=== PATIENT | female | born 1940 | race African-American/Black ===

== ENCOUNTER 2022-11-20 08:17 | Inpatient (IN) | payer MEDICAID, MEDICARE, OTHER ==
[~2022-11-20] VITALS: Ht 167.6 cm; Wt 92.5 kg
[~2022-11-20 08:17] MED LIST: AMLO10TA80; ASPI-864; CARV12.545; CYAN100058; FURO80TA3; LOSA100T32; OMEP20CA14; ZANTAC
[2022-11-20] MEDS ORDERED: MORPHINE SULFATE 4 MG/ML CPJ (NOT FOR IM USE) IV ONE ×3 (08:45→12:15)
[2022-11-20 09:15] LABS: CHLORIDE 103 mEq/L (98-107)
[2022-11-20 09:40] LABS: EOSINOPHILS % 0.7 % (0.0-5.0); HEMOGLOBIN. 13.5 g/dL (12.0-16.0); LYMPHOCYTES % 14.8 % (20.0-50.0); MEAN CORPUSCULAR HEMOGLOBIN 30.4 pg (28.0-32.0); MEAN CORPUSCULAR VOLUME 88.8 fL (81.0-99.0); MEAN PLATELET VOLUME 9.7 fl (7.4-10.4); NEUTROPHILS % 74.5 % (40.0-76.0); PLATELET 176 x1000/uL (130-400); RED BLOOD CELL COUNT 4.43 mill/uL (4.2-5.4); RED CELL DISTRIBUTION WIDTH 14.3 % (11.6-14.6)
[2022-11-20 09:41] LABS: HEMATOCRIT. 39.4 % (36.0-48.0)
[2022-11-20] MEDS ORDERED: IOHEXOL-350 100 ML BOTTLE ONE (11:23)
[2022-11-20] MEDS ORDERED: POTASSIUM CHLORIDE 20MEQ TABLET SR PO NR ×3 (13:00→15:00)
[2022-11-20] MEDS ORDERED: ONDANSETRON HCL 4MG/2ML INJ IV PRN (13:00)
[2022-11-20] MEDS ORDERED: IPRATROPIUM/ALBUTEROL 0.5-3(2.5)MG/3ML NEB HHN PRN (13:00)
[2022-11-20] MEDS ORDERED: CLONIDINE 0.1MG TABLET PO PRN (13:00)
[2022-11-20] MEDS ORDERED: ASPIRIN 81MG TABLET PO SCH (13:00)
[2022-11-20] MEDS ORDERED: ENOXAPARIN 40MG/0.4ML SYR SUBCUT SCH (13:30)
[2022-11-20] MEDS ORDERED: FUROSEMIDE 40MG/4ML VIAL IVP NR (14:15)
[2022-11-20 14:51] VITALS: BP 162/76
[2022-11-20] MEDS: HYDROCODONE/ACETAMINOPHEN 5/325MG TABLET PO PRN ×2 (15:32→20:47)
[2022-11-20] MEDS: NITROGLYCERIN OINT 1GM/INCH UDPKT TD SCH ×2 (15:34→21:47)
[2022-11-20] MEDS ORDERED: NALOXONE HCL 0.4MG/ML VIAL IV PRN (16:15)
[2022-11-20 16:26] VITALS: BP 166/86
[2022-11-20] MEDS ORDERED: LOSARTAN POTASSIUM 50 MG TABLET PO SCH (17:00)
[2022-11-20 18:04] LABS: CREATINE KINASE MB FRACTION 1.1 ng/mL (0.5-3.6)
[2022-11-20 20:00] VITALS: BP 138/82
[2022-11-20] MEDS: AMLODIPINE 5MG TABLET PO SCH (20:46)
[2022-11-21] VITALS: BP 136/83
[2022-11-21 00:10] LABS: CREATINE KINASE MB FRACTION < 1.0 ng/mL (0.5-3.6)
[2022-11-21 04:00] VITALS: BP 169/86
[2022-11-21] MEDS: HYDROCODONE/ACETAMINOPHEN 5/325MG TABLET PO PRN ×2 (04:19→21:09)
[2022-11-21] MEDS: NITROGLYCERIN OINT 1GM/INCH UDPKT TD SCH ×3 (05:32→21:09)
[2022-11-21 07:51] LABS: BASOPHILS % 0.7 % (0.0-2.0); EOSINOPHILS % 0.4 % (0.0-5.0); HEMATOCRIT. 38.2 % (36.0-48.0); HEMOGLOBIN. 12.8 g/dL (12.0-16.0); LYMPHOCYTES % 7.6 % (20.0-50.0); MEAN CORPUSCULAR VOLUME 89.6 fL (81.0-99.0); MONOCYTES % 10.7 % (2.0-8.0); NEUTROPHILS % 80.6 % (40.0-76.0); RED BLOOD CELL COUNT 4.27 mill/uL (4.2-5.4); RED CELL DISTRIBUTION WIDTH 14.3 % (11.6-14.6)
[2022-11-21 08:00] VITALS: BP 155/84
[2022-11-21] MEDS: ASPIRIN 81MG EC TABLET PO SCH (11:48)
[2022-11-21] MEDS: AMLODIPINE 5MG TABLET PO SCH ×2 (11:49→21:09)
[2022-11-21] MEDS: LOSARTAN POTASSIUM 50 MG TABLET PO SCH (11:49)
[2022-11-21] MEDS: POTASSIUM CHLORIDE 20MEQ TABLET SR PO SCH (11:49)
[2022-11-21] MEDS: FUROSEMIDE 40MG/4ML VIAL IVP SCH (11:50)
[2022-11-21 12:00] VITALS: BP 145/77
[2022-11-21] MEDS: HYDRALAZINE HCL 50MG TABLET PO SCH ×3 (12:12→21:09)
[2022-11-21 15:58] LABS: T4 FREE 1.54 ng/dL (0.76-1.46)
[2022-11-21 16:00] VITALS: BP 152/78
[2022-11-21] MEDS: APIXABAN 5 MG TABLET PO SCH (18:40)
[2022-11-21] MEDS: DILTIAZEM HCL 60MG TABLET PO SCH (18:40)
[2022-11-21 20:00] VITALS: BP 147/62
[2022-11-21] MEDS: GABAPENTIN 100MG CAPSULE PO SCH (21:09)
[2022-11-22] VITALS: BP 127/47
[2022-11-22] MEDS ORDERED: DILTIAZEM HCL 5MG/ML 5ML VIAL IV NR (00:45)
[2022-11-22] MEDS ORDERED: DILTIAZEM HCL 5MG/ML 5ML VIAL IV PRN (01:15)
[2022-11-22 04:00] VITALS: BP 126/66
[2022-11-22] MEDS: GABAPENTIN 100MG CAPSULE PO SCH ×3 (05:22→22:58)
[2022-11-22] MEDS: HYDRALAZINE HCL 50MG TABLET PO SCH ×3 (05:22→22:58)
[2022-11-22] MEDS: DILTIAZEM HCL 60MG TABLET PO SCH ×4 (05:22→16:57)
[2022-11-22] MEDS: NITROGLYCERIN OINT 1GM/INCH UDPKT TD SCH ×3 (05:22→22:58)
[2022-11-22 08:00] VITALS: BP 106/58
[2022-11-22] MEDS: POTASSIUM CHLORIDE 20MEQ TABLET SR PO SCH (08:01)
[2022-11-22] MEDS: ASPIRIN 81MG EC TABLET PO SCH (08:01)
[2022-11-22] MEDS: FUROSEMIDE 40MG/4ML VIAL IVP SCH (08:01)
[2022-11-22] MEDS: APIXABAN 5 MG TABLET PO SCH (08:01)
[2022-11-22] MEDS: LOSARTAN POTASSIUM 50 MG TABLET PO SCH (08:02)
[2022-11-22] MEDS: AMLODIPINE 5MG TABLET PO SCH ×2 (08:02→20:52)
[2022-11-22 08:18] LABS: BASOPHILS % 0.5 % (0.0-2.0); EOSINOPHILS % 0.2 % (0.0-5.0); HEMATOCRIT. 39.7 % (36.0-48.0); HEMOGLOBIN. 13.7 g/dL (12.0-16.0); MEAN CORPUSCULAR HEMOGLOBIN 30.1 pg (28.0-32.0); MEAN CORPUSCULAR VOLUME 87.4 fL (81.0-99.0); MEAN PLATELET VOLUME 9.9 fl (7.4-10.4); MONOCYTES % 10.8 % (2.0-8.0); NEUTROPHILS % 78.5 % (40.0-76.0); PLATELET 172 x1000/uL (130-400); RED BLOOD CELL COUNT 4.54 mill/uL (4.2-5.4); RED CELL DISTRIBUTION WIDTH 14.2 % (11.6-14.6)
[2022-11-22] MEDS ORDERED: POTASSIUM CHLORIDE 20MEQ TABLET SR PO NR (09:30)
[2022-11-22 12:00] VITALS: BP 124/60
[2022-11-22] MEDS: LIDOCAINE 5% PATCH TOP SCH (12:30)
[2022-11-22 16:00] VITALS: BP 136/59
[2022-11-22 18:57] LABS: INR 1.1; PROTHROMBIN TIME 11.9 sec (9.6-11.0)
[2022-11-22 20:00] VITALS: BP 118/56
[2022-11-22] MEDS: LOSARTAN POTASSIUM 100 MG TABLET PO SCH (20:46)
[2022-11-22] MEDS: HYDROCODONE/ACETAMINOPHEN 5/325MG TABLET PO PRN (20:52)
[2022-11-22] MEDS: DEXAMETHASONE 4MG/ML 1ML VIAL IV SCH (22:57)
[2022-11-23] VITALS (7 sets, daily range): BP systolic 97–133; BP diastolic 34–72
[2022-11-23] MEDS: DILTIAZEM HCL 60MG TABLET PO SCH ×2 (01:44→04:57)
[2022-11-23] MEDS: NITROGLYCERIN OINT 1GM/INCH UDPKT TD SCH ×3 (04:57→22:29)
[2022-11-23] MEDS: HYDRALAZINE HCL 50MG TABLET PO SCH ×3 (04:57→22:29)
[2022-11-23] MEDS: DEXAMETHASONE 4MG/ML 1ML VIAL IV SCH ×3 (05:11→22:29)
[2022-11-23] MEDS: GABAPENTIN 100MG CAPSULE PO SCH ×3 (05:11→22:30)
[2022-11-23] MEDS: GUAIFENESIN-DM 200MG-20MG/10ML UDC PO PRN (05:11)
[2022-11-23 08:12] LABS: BASOPHILS % 1.2 % (0.0-2.0); EOSINOPHILS % 0.2 % (0.0-5.0); HEMATOCRIT. 36.3 % (36.0-48.0); HEMOGLOBIN. 12.5 g/dL (12.0-16.0); MEAN CORPUSCULAR HEMOGLOBIN 30.8 pg (28.0-32.0); MEAN CORPUSCULAR VOLUME 89.6 fL (81.0-99.0); MEAN PLATELET VOLUME 9.7 fl (7.4-10.4); MONOCYTES % 3.3 % (2.0-8.0); NEUTROPHILS % 87.3 % (40.0-76.0); PLATELET 251 x1000/uL (130-400); RED BLOOD CELL COUNT 4.05 mill/uL (4.2-5.4); RED CELL DISTRIBUTION WIDTH 14.1 % (11.6-14.6)
[2022-11-23] MEDS: LIDOCAINE 5% PATCH TOP SCH (09:00)
[2022-11-23] MEDS: LOSARTAN POTASSIUM 100 MG TABLET PO SCH ×2 (11:19→22:29)
[2022-11-23] MEDS: FUROSEMIDE 40MG/4ML VIAL IVP SCH (11:20)
[2022-11-23] MEDS: POTASSIUM CHLORIDE 20MEQ TABLET SR PO SCH (11:20)
[2022-11-23] MEDS ORDERED: DILTIAZEM HCL 30MG TABLET PO SCH (12:00)
[2022-11-23] MEDS: DILTIAZEM HCL 30MG TABLET PO SCH (20:00)
[2022-11-23] MEDS ORDERED: AMLODIPINE 2.5MG TABLET PO SCH (21:00)
[2022-11-24] VITALS: BP_SYST 106; BP_SYST 121; BP_DIAS 46; BP_DIAS 54
[2022-11-24] MEDS: DILTIAZEM HCL 30MG TABLET PO SCH ×2 (02:06→18:33)
[2022-11-24 04:00] VITALS: BP 104/45
[2022-11-24] MEDS: HYDRALAZINE HCL 50MG TABLET PO SCH ×3 (04:57→22:00)
[2022-11-24] MEDS: NITROGLYCERIN OINT 1GM/INCH UDPKT TD SCH (04:57)
[2022-11-24] MEDS: GABAPENTIN 100MG CAPSULE PO SCH ×3 (06:07→22:17)
[2022-11-24] MEDS: DEXAMETHASONE 4MG/ML 1ML VIAL IV SCH ×3 (06:07→22:16)
[2022-11-24 07:26] LABS: BASOPHILS % 1.1 % (0.0-2.0); EOSINOPHILS % 0.1 % (0.0-5.0); HEMATOCRIT. 35.7 % (36.0-48.0); HEMOGLOBIN. 12.4 g/dL (12.0-16.0); LYMPHOCYTES % 7.8 % (20.0-50.0); MEAN CORPUSCULAR HEMOGLOBIN 30.2 pg (28.0-32.0); MEAN CORPUSCULAR VOLUME 87.2 fL (81.0-99.0); MEAN PLATELET VOLUME 9.5 fl (7.4-10.4); MONOCYTES % 3.5 % (2.0-8.0); NEUTROPHILS % 87.5 % (40.0-76.0); PLATELET 259 x1000/uL (130-400); RED BLOOD CELL COUNT 4.09 mill/uL (4.2-5.4); RED CELL DISTRIBUTION WIDTH 14.4 % (11.6-14.6)
[2022-11-24 08:00] VITALS: BP 102/59
[2022-11-24] MEDS: LIDOCAINE 5% PATCH TOP SCH (11:15)
[2022-11-24] MEDS: SODIUM CHLORIDE 0.45% 1,000 ML IV SCH (11:17)
[2022-11-24 12:00] VITALS: BP 106/61
[2022-11-24 16:00] VITALS: BP 106/55
[2022-11-24 22:04] VITALS: BP 102/43
[2022-11-24] MEDS: GUAIFENESIN-DM 200MG-20MG/10ML UDC PO PRN (22:16)
[2022-11-25] VITALS (45 sets, daily range): BP systolic 87–176; BP diastolic 35–66
[2022-11-25] MEDS: DEXAMETHASONE 4MG/ML 1ML VIAL IV SCH ×4 (05:36→23:31)
[2022-11-25] MEDS: SODIUM CHLORIDE 0.45% 1,000 ML IV SCH (05:38)
[2022-11-25] MEDS: HYDRALAZINE HCL 50MG TABLET PO SCH ×4 (05:39→21:30)
[2022-11-25] MEDS: GABAPENTIN 100MG CAPSULE PO SCH ×3 (05:40→21:28)
[2022-11-25 07:15] LABS: HEMATOCRIT. 35.1 % (36.0-48.0); HEMOGLOBIN. 12.2 g/dL (12.0-16.0); MEAN CORPUSCULAR HEMOGLOBIN 30.2 pg (28.0-32.0); MEAN CORPUSCULAR VOLUME 86.9 fL (81.0-99.0); MEAN PLATELET VOLUME 8.4 fl (7.4-10.4); PLATELET 340 x1000/uL (130-400); RED BLOOD CELL COUNT 4.04 mill/uL (4.2-5.4); RED CELL DISTRIBUTION WIDTH 14.4 % (11.6-14.6)
[2022-11-25] MEDS: DILTIAZEM HCL 30MG TABLET PO SCH ×4 (08:00→23:31)
[2022-11-25] MEDS: LOSARTAN POTASSIUM 50 MG TABLET PO SCH (09:00)
[2022-11-25] MEDS: LIDOCAINE 5% PATCH TOP SCH (09:00)
[2022-11-25] MEDS: AMLODIPINE 2.5MG TABLET PO SCH (09:00)
[2022-11-25] MEDS ORDERED: ONDANSETRON HCL 4MG/2ML INJ ONE (09:09)
[2022-11-25] MEDS ORDERED: ETOMIDATE 2MG/ML 10ML VIAL IV ONE (09:09)
[2022-11-25] MEDS ORDERED: CEFAZOLIN SODIUM 1000MG/VIAL ONE (09:09)
[2022-11-25] MEDS ORDERED: ROCURONIUM BROMIDE 10MG/ML VIAL 5ML IV ONE (09:10)
[2022-11-25] MEDS ORDERED: LIDOCAINE HCL 1% 10 MG/ML 10ML VIAL ONE (09:10)
[2022-11-25] MEDS ORDERED: DEXAMETHASONE 4MG/ML 1ML VIAL ONE (09:10)
[2022-11-25] MEDS ORDERED: LIDOCAINE HCL/EPINEPHRINE 1%-EPI 1:100,000 30 ML VIAL INFIL ONE (10:05)
[2022-11-25] MEDS ORDERED: GENTAMICIN SULF 40MG/ML 2ML VIAL ONE (10:05)
[2022-11-25] MEDS ORDERED: THROMBIN (BOVINE) 5000 UNITS/VIAL TOP ONE (10:05)
[2022-11-25] MEDS ORDERED: FENTANYL CITRATE/PF 50MCG/ML 2ML VIAL ONE ×2 (10:16→10:49)
[2022-11-25] MEDS ORDERED: ALBUMIN HUMAN 25GM/100ML (25%) IV ONE (11:03)
[2022-11-25] MEDS ORDERED: HYDRALAZINE 20MG/ML VIAL ONE (13:03)
[2022-11-25] MEDS: NICARDIPINE 100 MG in SODIUM CHLORIDE 0.9% 60 ML IV PRN ×2 (13:35→21:29)
[2022-11-25] MEDS ORDERED: CEFAZOLIN SODIUM 1000MG/VIAL IV SCH (14:00)
[2022-11-25] MEDS: DEXT 5%/LACTATED RINGERS 1,000 ML IV SCH ×2 (14:14→23:32)
[2022-11-25] MEDS: MORPHINE SULFATE 4 MG/ML CPJ (NOT FOR IM USE) IV PRN ×3 (14:21→18:31)
[2022-11-25] MEDS: CEFAZOLIN 1000MG PREMIX 50 ML IV SCH ×2 (15:16→21:28)
[2022-11-25] MEDS: NITROGLYCERIN OINT 1GM/INCH UDPKT TD SCH ×2 (17:08→23:31)
[2022-11-25] MEDS ORDERED: HYDRALAZINE 20MG/ML VIAL IV PRN (18:15)
[2022-11-25 23:13] LABS: PLATELET ESTIMATE NORMAL
[2022-11-26] VITALS (86 sets, daily range): BP systolic 7–169; BP diastolic 2–88
[2022-11-26 05:16] LABS: HEMATOCRIT. 33.8 % (36.0-48.0); HEMOGLOBIN. 11.6 g/dL (12.0-16.0); MEAN CORPUSCULAR VOLUME 87.4 fL (81.0-99.0); MEAN PLATELET VOLUME 8.2 fl (7.4-10.4); PLATELET 380 x1000/uL (130-400); RED BLOOD CELL COUNT 3.87 mill/uL (4.2-5.4)
[2022-11-26] MEDS: CEFAZOLIN 1000MG PREMIX 50 ML IV SCH ×3 (05:30→23:08)
[2022-11-26] MEDS: HYDRALAZINE HCL 50MG TABLET PO SCH ×3 (05:30→23:08)
[2022-11-26] MEDS: GABAPENTIN 100MG CAPSULE PO SCH ×3 (05:30→23:08)
[2022-11-26] MEDS: DEXAMETHASONE 4MG/ML 1ML VIAL IV SCH ×4 (05:31→23:07)
[2022-11-26] MEDS: NITROGLYCERIN OINT 1GM/INCH UDPKT TD SCH ×3 (05:31→17:12)
[2022-11-26] MEDS: MORPHINE SULFATE 4 MG/ML CPJ (NOT FOR IM USE) IV PRN ×2 (05:31→19:52)
[2022-11-26] MEDS: SODIUM CHLORIDE 0.9% 1,000 ML IV SCH ×2 (08:18→20:50)
[2022-11-26] MEDS: LIDOCAINE 5% PATCH TOP SCH (08:19)
[2022-11-26] MEDS: AMLODIPINE 2.5MG TABLET PO SCH (08:19)
[2022-11-26] MEDS: DILTIAZEM HCL 30MG TABLET PO SCH ×2 (08:19→16:00)
[2022-11-26] MEDS: LOSARTAN POTASSIUM 50 MG TABLET PO SCH (08:19)
[2022-11-26 09:45] LABS: PLATELET ESTIMATE NORMAL
[2022-11-27] VITALS (51 sets, daily range): BP systolic 78–150; BP diastolic 43–85
[2022-11-27] MEDS: NITROGLYCERIN OINT 1GM/INCH UDPKT TD SCH ×4 (01:13→19:07)
[2022-11-27 04:49] LABS: HEMATOCRIT. 34.8 % (36.0-48.0); HEMOGLOBIN. 11.7 g/dL (12.0-16.0); MEAN CORPUSCULAR HEMOGLOBIN 30.2 pg (28.0-32.0); MEAN CORPUSCULAR VOLUME 89.8 fL (81.0-99.0); MEAN PLATELET VOLUME 7.6 fl (7.4-10.4); PLATELET 388 x1000/uL (130-400); RED BLOOD CELL COUNT 3.87 mill/uL (4.2-5.4); RED CELL DISTRIBUTION WIDTH 14.5 % (11.6-14.6)
[2022-11-27] MEDS: HYDRALAZINE HCL 50MG TABLET PO SCH ×3 (06:00→21:57)
[2022-11-27] MEDS: CEFAZOLIN 1000MG PREMIX 50 ML IV SCH ×2 (06:41→13:27)
[2022-11-27] MEDS: GABAPENTIN 100MG CAPSULE PO SCH ×3 (06:41→21:57)
[2022-11-27] MEDS: DEXAMETHASONE 4MG/ML 1ML VIAL IV SCH ×3 (06:41→18:00)
[2022-11-27] MEDS: LOSARTAN POTASSIUM 50 MG TABLET PO SCH (08:08)
[2022-11-27] MEDS: AMLODIPINE 2.5MG TABLET PO SCH (08:08)
[2022-11-27] MEDS: LIDOCAINE 5% PATCH TOP SCH (08:09)
[2022-11-27] MEDS: DILTIAZEM HCL 30MG TABLET PO SCH ×3 (08:09→16:55)
[2022-11-27] MEDS ORDERED: NALOXONE HCL 0.4MG/ML VIAL IV PRN (09:15)
[2022-11-27] MEDS: SODIUM CHLORIDE 0.9% 1,000 ML IV SCH ×2 (09:31→23:30)
[2022-11-27] MEDS: MORPHINE SULFATE 4 MG/ML CPJ (NOT FOR IM USE) IV PRN (11:36)
[2022-11-27] MEDS: ACETAMINOPHEN 325MG TABLET PO PRN (19:12)
[2022-11-28] VITALS: BP 105/60
[2022-11-28] MEDS: DILTIAZEM HCL 30MG TABLET PO SCH ×3 (00:01→17:19)
[2022-11-28 04:00] VITALS: BP 114/54
[2022-11-28] MEDS: GABAPENTIN 100MG CAPSULE PO SCH ×2 (06:00→14:12)
[2022-11-28] MEDS: NITROGLYCERIN OINT 1GM/INCH UDPKT TD SCH ×4 (06:01→18:05)
[2022-11-28] MEDS: HYDRALAZINE HCL 50MG TABLET PO SCH ×2 (06:01→14:13)
[2022-11-28 08:00] VITALS: BP 124/53
[2022-11-28 08:57] LABS: PLATELET ESTIMATE NORMAL
[2022-11-28] MEDS: AMLODIPINE 2.5MG TABLET PO SCH (09:41)
[2022-11-28] MEDS: FUROSEMIDE 20MG TABLET PO SCH (09:41)
[2022-11-28] MEDS: LIDOCAINE 5% PATCH TOP SCH (09:41)
[2022-11-28 09:58] LABS: HEMATOCRIT. 36.2 % (36.0-48.0); HEMOGLOBIN. 12.3 g/dL (12.0-16.0); MEAN CORPUSCULAR HEMOGLOBIN 29.9 pg (28.0-32.0); MEAN CORPUSCULAR VOLUME 88.2 fL (81.0-99.0); MEAN PLATELET VOLUME 7.5 fl (7.4-10.4); PLATELET 389 x1000/uL (130-400); RED CELL DISTRIBUTION WIDTH 14.3 % (11.6-14.6)
[2022-11-28 12:00] VITALS: BP 134/54
[2022-11-28 16:00] VITALS: BP 114/63
[2022-11-28 20:00] VITALS: BP 133/85
[2022-11-28 21:54] LABS: PLATELET ESTIMATE NORMAL
[2022-11-29] VITALS: BP 120/59
[2022-11-29] MEDS: GABAPENTIN 100MG CAPSULE PO SCH ×4 (01:03→21:56)
[2022-11-29] MEDS: HYDRALAZINE HCL 50MG TABLET PO SCH ×4 (01:03→21:55)
[2022-11-29] MEDS: DILTIAZEM HCL 30MG TABLET PO SCH ×3 (01:04→16:00)
[2022-11-29] MEDS: NITROGLYCERIN OINT 1GM/INCH UDPKT TD SCH ×4 (01:05→18:16)
[2022-11-29 04:00] VITALS: BP 122/66
[2022-11-29] MEDS: MORPHINE SULFATE 4 MG/ML CPJ (NOT FOR IM USE) IV PRN (06:52)
[2022-11-29 08:00] VITALS: BP 139/67
[2022-11-29] MEDS: FUROSEMIDE 20MG TABLET PO SCH ×2 (08:56→09:00)
[2022-11-29] MEDS: AMLODIPINE 2.5MG TABLET PO SCH (08:56)
[2022-11-29] MEDS: LIDOCAINE 5% PATCH TOP SCH (08:57)
[2022-11-29 09:05] LABS: BASOPHILS % 0.1 % (0.0-2.0); EOSINOPHILS % 0.1 % (0.0-5.0); HEMATOCRIT. 34.3 % (36.0-48.0); HEMOGLOBIN. 12.1 g/dL (12.0-16.0); LYMPHOCYTES % 11.9 % (20.0-50.0); MEAN CORPUSCULAR HEMOGLOBIN 32.4 pg (28.0-32.0); MEAN CORPUSCULAR VOLUME 91.9 fL (81.0-99.0); MEAN PLATELET VOLUME 7.1 fl (7.4-10.4); MONOCYTES % 13.3 % (2.0-8.0); NEUTROPHILS % 74.6 % (40.0-76.0); PLATELET 404 x1000/uL (130-400); RED BLOOD CELL COUNT 3.73 mill/uL (4.2-5.4); RED CELL DISTRIBUTION WIDTH 14.3 % (11.6-14.6)
[2022-11-29 12:00] VITALS: BP 120/64
[2022-11-29 12:44] LABS: CLARITY URINE CLEAR (CLEAR); COLOR URINE YELLOW (YELLOW); KETONES URINE NEGATIVE (NEGATIVE); LEUKOCYTE ESTERASE URINE TRACE (NEGATIVE); NITRITE URINE NEGATIVE (NEGATIVE); OCCULT BLOOD URINE 1+ (NEGATIVE); PH URINE 5.5 (4.5-8.0); PROTEIN URINE TRACE (NEGATIVE); UROBILINOGEN URINE 0.2 E.U./dL (0.2-1.0)
[2022-11-29 16:00] VITALS: BP 119/65
[2022-11-29] MEDS ORDERED: HYDRALAZINE 10 MG in SODIUM CHLORIDE 0.9% 49.5 ML IV PRN (17:15)
[2022-11-29 20:00] VITALS: BP 142/64
[2022-11-30] VITALS: BP 113/43
[2022-11-30 04:00] VITALS: BP 121/47
[2022-11-30] MEDS: GABAPENTIN 100MG CAPSULE PO SCH ×3 (06:00→22:18)
[2022-11-30] MEDS: HYDRALAZINE HCL 50MG TABLET PO SCH ×3 (06:00→22:26)
[2022-11-30] MEDS: NITROGLYCERIN OINT 1GM/INCH UDPKT TD SCH ×4 (06:00→17:59)
[2022-11-30 08:00] VITALS: BP 140/62
[2022-11-30] MEDS: DILTIAZEM HCL 30MG TABLET PO SCH ×3 (09:32→16:00)
[2022-11-30] MEDS: AMLODIPINE 2.5MG TABLET PO SCH (09:33)
[2022-11-30] MEDS: FUROSEMIDE 20MG TABLET PO SCH (09:33)
[2022-11-30] MEDS: LIDOCAINE 5% PATCH TOP SCH (09:34)
[2022-11-30 12:00] VITALS: BP 154/56
[2022-11-30 16:00] VITALS: BP 117/52
[2022-11-30] MEDS: HYDROCODONE/ACETAMINOPHEN 5/325MG TABLET PO PRN (19:11)
[2022-11-30 20:00] VITALS: BP 125/84
[2022-11-30 21:58] LABS: BASOPHILS % 0.3 % (0.0-2.0); EOSINOPHILS % 0.3 % (0.0-5.0); HEMATOCRIT. 34.1 % (36.0-48.0); HEMOGLOBIN. 11.5 g/dL (12.0-16.0); LYMPHOCYTES % 7.2 % (20.0-50.0); MEAN CORPUSCULAR HEMOGLOBIN 29.6 pg (28.0-32.0); MEAN CORPUSCULAR VOLUME 87.8 fL (81.0-99.0); MONOCYTES % 9.5 % (2.0-8.0); NEUTROPHILS % 82.7 % (40.0-76.0); PLATELET 395 x1000/uL (130-400); RED BLOOD CELL COUNT 3.89 mill/uL (4.2-5.4); RED CELL DISTRIBUTION WIDTH 14.2 % (11.6-14.6)
[2022-12-01] VITALS: BP 126/60
[2022-12-01 04:00] VITALS: BP 141/56
[2022-12-01] MEDS: HYDRALAZINE HCL 50MG TABLET PO SCH ×3 (06:16→20:56)
[2022-12-01] MEDS: GABAPENTIN 100MG CAPSULE PO SCH ×3 (06:16→20:55)
[2022-12-01] MEDS: HYDROCODONE/ACETAMINOPHEN 5/325MG TABLET PO PRN ×3 (06:30→20:54)
[2022-12-01] MEDS: NITROGLYCERIN OINT 1GM/INCH UDPKT TD SCH ×4 (06:37→18:07)
[2022-12-01 08:00] VITALS: BP 109/50
[2022-12-01] MEDS: FUROSEMIDE 20MG TABLET PO SCH (08:41)
[2022-12-01] MEDS: DILTIAZEM HCL 30MG TABLET PO SCH ×3 (08:41→18:06)
[2022-12-01] MEDS: LIDOCAINE 5% PATCH TOP SCH (08:41)
[2022-12-01] MEDS: AMLODIPINE 2.5MG TABLET PO SCH (08:41)
[2022-12-01] MEDS: ACETAMINOPHEN 325MG TABLET PO PRN (09:31)
[2022-12-01 09:50] LABS: BASOPHILS % 0.6 % (0.0-2.0); EOSINOPHILS % 0.7 % (0.0-5.0); HEMOGLOBIN. 12.1 g/dL (12.0-16.0); LYMPHOCYTES % 9.8 % (20.0-50.0); MEAN CORPUSCULAR HEMOGLOBIN 30.3 pg (28.0-32.0); MEAN CORPUSCULAR VOLUME 87.5 fL (81.0-99.0); MEAN PLATELET VOLUME 7.1 fl (7.4-10.4); MONOCYTES % 8.2 % (2.0-8.0); NEUTROPHILS % 80.7 % (40.0-76.0); PLATELET 389 x1000/uL (130-400); RED CELL DISTRIBUTION WIDTH 14.5 % (11.6-14.6)
[2022-12-01 12:00] VITALS: BP 129/67
[2022-12-01 16:00] VITALS: BP 118/53
[2022-12-01 20:00] VITALS: BP 126/63
[2022-12-02] VITALS: BP 131/70
[2022-12-02] MEDS: NITROGLYCERIN OINT 1GM/INCH UDPKT TD SCH ×4 (01:46→18:40)
[2022-12-02] MEDS: DILTIAZEM HCL 30MG TABLET PO SCH ×3 (01:46→16:28)
[2022-12-02 04:00] VITALS: BP 122/67
[2022-12-02 06:02] LABS: BASOPHILS % 0.4 % (0.0-2.0); EOSINOPHILS % 0.7 % (0.0-5.0); HEMATOCRIT. 29.9 % (36.0-48.0); HEMOGLOBIN. 10.5 g/dL (12.0-16.0); LYMPHOCYTES % 9.6 % (20.0-50.0); MEAN CORPUSCULAR HEMOGLOBIN 32.6 pg (28.0-32.0); MEAN CORPUSCULAR VOLUME 92.6 fL (81.0-99.0); MEAN PLATELET VOLUME 7.3 fl (7.4-10.4); MONOCYTES % 9.3 % (2.0-8.0); PLATELET 355 x1000/uL (130-400); RED BLOOD CELL COUNT 3.23 mill/uL (4.2-5.4); RED CELL DISTRIBUTION WIDTH 14.1 % (11.6-14.6)
[2022-12-02] MEDS: GABAPENTIN 100MG CAPSULE PO SCH ×3 (07:20→23:58)
[2022-12-02] MEDS: HYDRALAZINE HCL 50MG TABLET PO SCH ×3 (07:20→23:58)
[2022-12-02 08:00] VITALS: BP 132/81
[2022-12-02] MEDS: LIDOCAINE 5% PATCH TOP SCH (09:01)
[2022-12-02] MEDS: FUROSEMIDE 40MG/4ML VIAL IVP SCH (09:01)
[2022-12-02] MEDS: HYDROCODONE/ACETAMINOPHEN 5/325MG TABLET PO PRN ×2 (09:02→18:40)
[2022-12-02] MEDS: AMLODIPINE 2.5MG TABLET PO SCH (09:04)
[2022-12-02 12:00] VITALS: BP 91/50
[2022-12-02 13:15] LABS: CREATINE KINASE 68 IU/L (26-192)
[2022-12-02 16:00] VITALS: BP 137/66
[2022-12-03] VITALS: BP 136/83
[2022-12-03 05:44] LABS: BASOPHILS % 0.3 % (0.0-2.0); EOSINOPHILS % 0.9 % (0.0-5.0); HEMATOCRIT. 29.9 % (36.0-48.0); HEMOGLOBIN. 10.3 g/dL (12.0-16.0); LYMPHOCYTES % 9.4 % (20.0-50.0); MEAN CORPUSCULAR HEMOGLOBIN 31.2 pg (28.0-32.0); MEAN CORPUSCULAR VOLUME 90.5 fL (81.0-99.0); MEAN PLATELET VOLUME 7.3 fl (7.4-10.4); MONOCYTES % 7.6 % (2.0-8.0); NEUTROPHILS % 81.8 % (40.0-76.0); PLATELET 341 x1000/uL (130-400); RED BLOOD CELL COUNT 3.31 mill/uL (4.2-5.4); RED CELL DISTRIBUTION WIDTH 14.2 % (11.6-14.6)
[2022-12-03] MEDS: HYDRALAZINE HCL 50MG TABLET PO SCH ×3 (06:26→21:24)
[2022-12-03] MEDS: NITROGLYCERIN OINT 1GM/INCH UDPKT TD SCH ×5 (06:27→23:36)
[2022-12-03] MEDS: GABAPENTIN 100MG CAPSULE PO SCH ×3 (06:27→21:20)
[2022-12-03 08:00] VITALS: BP 120/54
[2022-12-03] MEDS: DILTIAZEM HCL 30MG TABLET PO SCH ×4 (08:59→23:36)
[2022-12-03] MEDS: FUROSEMIDE 40MG/4ML VIAL IVP SCH (09:00)
[2022-12-03] MEDS: AMLODIPINE 2.5MG TABLET PO SCH (09:00)
[2022-12-03] MEDS: LIDOCAINE 5% PATCH TOP SCH (09:01)
[2022-12-03] MEDS: HYDROCODONE/ACETAMINOPHEN 5/325MG TABLET PO PRN (09:14)
[2022-12-03 12:00] VITALS: BP 114/50
[2022-12-03] MEDS ORDERED: CALCIUM CARBONATE 500MG TABLET CHEW PO PRN (14:15)
[2022-12-03 16:00] VITALS: BP 113/50
[2022-12-03 20:00] VITALS: BP 102/47
[2022-12-04] VITALS: BP 123/51
[2022-12-04 04:00] VITALS: BP 120/58
[2022-12-04] MEDS: NITROGLYCERIN OINT 1GM/INCH UDPKT TD SCH ×3 (05:54→17:46)
[2022-12-04] MEDS: GABAPENTIN 100MG CAPSULE PO SCH ×3 (05:54→21:24)
[2022-12-04] MEDS: HYDRALAZINE HCL 50MG TABLET PO SCH ×3 (05:55→21:24)
[2022-12-04 08:00] VITALS: BP 128/86
[2022-12-04] MEDS: DILTIAZEM HCL 30MG TABLET PO SCH ×2 (09:01→16:25)
[2022-12-04] MEDS: AMLODIPINE 2.5MG TABLET PO SCH (09:02)
[2022-12-04] MEDS: FUROSEMIDE 20MG TABLET PO SCH ×2 (09:04→21:24)
[2022-12-04] MEDS: LIDOCAINE 5% PATCH TOP SCH (09:06)
[2022-12-04 10:05] LABS: BASOPHILS % 0.5 % (0.0-2.0); EOSINOPHILS % 1.6 % (0.0-5.0); HEMATOCRIT. 33.4 % (36.0-48.0); HEMOGLOBIN. 11.5 g/dL (12.0-16.0); LYMPHOCYTES % 10.3 % (20.0-50.0); MEAN CORPUSCULAR HEMOGLOBIN 30.4 pg (28.0-32.0); MEAN CORPUSCULAR VOLUME 88.6 fL (81.0-99.0); MEAN PLATELET VOLUME 7.1 fl (7.4-10.4); MONOCYTES % 7.9 % (2.0-8.0); NEUTROPHILS % 79.7 % (40.0-76.0); PLATELET 354 x1000/uL (130-400); RED BLOOD CELL COUNT 3.77 mill/uL (4.2-5.4)
[2022-12-04] MEDS: HYDROCODONE/ACETAMINOPHEN 5/325MG TABLET PO PRN (15:17)
[2022-12-04 16:00] VITALS: BP 124/54
[2022-12-04 20:00] VITALS: BP 130/53
[2022-12-05] VITALS (7 sets, daily range): BP systolic 104–151; BP diastolic 51–76
[2022-12-05] MEDS: NITROGLYCERIN OINT 1GM/INCH UDPKT TD SCH ×5 (00:50→23:01)
[2022-12-05] MEDS: DILTIAZEM HCL 30MG TABLET PO SCH ×4 (00:50→23:00)
[2022-12-05] MEDS: HYDROCODONE/ACETAMINOPHEN 5/325MG TABLET PO PRN ×3 (00:50→20:37)
[2022-12-05] MEDS: GABAPENTIN 100MG CAPSULE PO SCH ×3 (05:46→22:51)
[2022-12-05] MEDS: HYDRALAZINE HCL 50MG TABLET PO SCH ×3 (05:46→22:51)
[2022-12-05 06:03] LABS: BASOPHILS % 0.3 % (0.0-2.0); EOSINOPHILS % 2.5 % (0.0-5.0); HEMATOCRIT. 31.4 % (36.0-48.0); HEMOGLOBIN. 10.6 g/dL (12.0-16.0); LYMPHOCYTES % 12.1 % (20.0-50.0); MEAN CORPUSCULAR HEMOGLOBIN 30.3 pg (28.0-32.0); MEAN CORPUSCULAR VOLUME 89.6 fL (81.0-99.0); MEAN PLATELET VOLUME 7.6 fl (7.4-10.4); NEUTROPHILS % 75.1 % (40.0-76.0); PLATELET 334 x1000/uL (130-400); RED CELL DISTRIBUTION WIDTH 14.3 % (11.6-14.6)
[2022-12-05] MEDS: AMLODIPINE 2.5MG TABLET PO SCH (09:42)
[2022-12-05] MEDS ORDERED: POTASSIUM CHLORIDE 20MEQ TABLET SR PO NR (09:45)
[2022-12-05] MEDS ORDERED: FUROSEMIDE 20MG TABLET PO SCH (09:45)
[2022-12-05] MEDS: LIDOCAINE 5% PATCH TOP SCH (09:48)
[2022-12-05] MEDS ORDERED: HYDROCODONE/ACETAMINOPHEN 5/325MG TABLET PO NR (14:30)
[2022-12-06] VITALS: BP 139/59
[2022-12-06] MEDS: HYDROCODONE/ACETAMINOPHEN 5/325MG TABLET PO PRN ×3 (02:24→21:32)
[2022-12-06 04:00] VITALS: BP 120/58
[2022-12-06 05:48] LABS: BASOPHILS % 0.5 % (0.0-2.0); EOSINOPHILS % 3.2 % (0.0-5.0); HEMATOCRIT. 31.4 % (36.0-48.0); HEMOGLOBIN. 10.9 g/dL (12.0-16.0); LYMPHOCYTES % 8.5 % (20.0-50.0); MEAN CORPUSCULAR HEMOGLOBIN 32.6 pg (28.0-32.0); MEAN PLATELET VOLUME 7.3 fl (7.4-10.4); MONOCYTES % 8.4 % (2.0-8.0); NEUTROPHILS % 79.4 % (40.0-76.0); PLATELET 301 x1000/uL (130-400); RED BLOOD CELL COUNT 3.34 mill/uL (4.2-5.4)
[2022-12-06] MEDS: HYDRALAZINE HCL 50MG TABLET PO SCH ×3 (05:54→21:31)
[2022-12-06] MEDS: GABAPENTIN 100MG CAPSULE PO SCH ×3 (05:55→21:31)
[2022-12-06] MEDS: NITROGLYCERIN OINT 1GM/INCH UDPKT TD SCH ×3 (05:55→18:00)
[2022-12-06 08:00] VITALS: BP 146/57
[2022-12-06] MEDS: DILTIAZEM HCL 30MG TABLET PO SCH ×2 (08:00→16:00)
[2022-12-06] MEDS ORDERED: POTASSIUM CHLORIDE 20MEQ TABLET SR PO SCH (09:15)
[2022-12-06] MEDS: AMLODIPINE 2.5MG TABLET PO SCH (09:35)
[2022-12-06] MEDS: LIDOCAINE 5% PATCH TOP SCH (09:37)
[2022-12-06 12:00] VITALS: BP 145/60
[2022-12-06] MEDS: ACETAMINOPHEN 325MG TABLET PO PRN (14:25)
[2022-12-06 16:00] VITALS: BP 144/66
[2022-12-06 20:00] VITALS: BP 156/66
[2022-12-07] VITALS: BP 151/65
[2022-12-07 04:00] VITALS: BP 161/65
[2022-12-07] MEDS: HYDROCODONE/ACETAMINOPHEN 5/325MG TABLET PO PRN (04:22)
[2022-12-07 06:26] LABS: BASOPHILS % 0.9 % (0.0-2.0); EOSINOPHILS % 2.9 % (0.0-5.0); HEMATOCRIT. 31.3 % (36.0-48.0); HEMOGLOBIN. 10.9 g/dL (12.0-16.0); LYMPHOCYTES % 9.1 % (20.0-50.0); MEAN CORPUSCULAR VOLUME 92.2 fL (81.0-99.0); MEAN PLATELET VOLUME 7.5 fl (7.4-10.4); MONOCYTES % 8.3 % (2.0-8.0); NEUTROPHILS % 78.8 % (40.0-76.0); PLATELET 276 x1000/uL (130-400); RED CELL DISTRIBUTION WIDTH 13.9 % (11.6-14.6)
[2022-12-07] MEDS: GABAPENTIN 100MG CAPSULE PO SCH ×3 (06:29→21:12)
[2022-12-07] MEDS: HYDRALAZINE HCL 50MG TABLET PO SCH ×3 (06:30→21:12)
[2022-12-07] MEDS: NITROGLYCERIN OINT 1GM/INCH UDPKT TD SCH ×4 (06:30→17:54)
[2022-12-07 08:00] VITALS: BP 134/60
[2022-12-07] MEDS: DILTIAZEM HCL 30MG TABLET PO SCH ×3 (08:00→17:54)
[2022-12-07] MEDS: AMLODIPINE 2.5MG TABLET PO SCH (09:00)
[2022-12-07] MEDS: LIDOCAINE 5% PATCH TOP SCH (09:00)
[2022-12-07] MEDS ORDERED: MAGNESIUM GLUCONATE 500MG TABLET PO NR (09:00)
[2022-12-07 12:00] VITALS: BP 157/70
[2022-12-07 16:00] VITALS: BP 151/65
[2022-12-07 20:00] VITALS: BP 101/74
[2022-12-08] VITALS: BP 153/71
[2022-12-08] MEDS: HYDROCODONE/ACETAMINOPHEN 5/325MG TABLET PO PRN ×2 (00:51→12:47)
[2022-12-08] MEDS: DILTIAZEM HCL 30MG TABLET PO SCH ×2 (00:52→09:09)
[2022-12-08 04:00] VITALS: BP 160/60
[2022-12-08] MEDS: GABAPENTIN 100MG CAPSULE PO SCH (06:57)
[2022-12-08] MEDS: NITROGLYCERIN OINT 1GM/INCH UDPKT TD SCH ×3 (06:57→12:46)
[2022-12-08] MEDS: HYDRALAZINE HCL 50MG TABLET PO SCH (06:57)
[2022-12-08 07:21] LABS: BASOPHILS % 0.6 % (0.0-2.0); EOSINOPHILS % 3.8 % (0.0-5.0); HEMATOCRIT. 30.4 % (36.0-48.0); HEMOGLOBIN. 10.5 g/dL (12.0-16.0); LYMPHOCYTES % 14.5 % (20.0-50.0); MEAN CORPUSCULAR HEMOGLOBIN 32.9 pg (28.0-32.0); MONOCYTES % 10.5 % (2.0-8.0); NEUTROPHILS % 70.6 % (40.0-76.0); PLATELET 238 x1000/uL (130-400); RED CELL DISTRIBUTION WIDTH 13.7 % (11.6-14.6)
[2022-12-08 08:00] VITALS: BP 138/56
[2022-12-08] MEDS ORDERED: MAGNESIUM GLUCONATE 500MG TABLET PO NR (09:00)
[2022-12-08] MEDS ORDERED: AMLODIPINE 10MG TABLET PO SCH (09:00)
[2022-12-08] MEDS ORDERED: POTASSIUM CHLORIDE 20MEQ TABLET SR PO NR (09:00)
[2022-12-08] MEDS: LIDOCAINE 5% PATCH TOP SCH (09:10)
[2022-12-08 10:40] VITALS: BP 138/56
[2022-12-08 12:00] VITALS: BP 122/59
[2022-12-08 12:47] VITALS: BP 122/59
== END 2022-12-08 15:40 | disposition home or self-care (01) | DRG 471 ==
LOC: ER 08:17 → 8WST 12:02 → EDBEDREQTM 12:03 → EDBEDREQ 12:03 → 8WST 14:23 → MICUSO 11-25 14:10 → 6EST 11-27 14:35
PROVIDERS: ADMIT Internal Medicine; ATTEND Internal Medicine
PROC: 00NW0ZZ Release Cervical Spinal Cord, Open Approach (ICD-10-PCS; principal; 2022-11-25)
PROC: 01N10ZZ Release Cervical Nerve, Open Approach (ICD-10-PCS; 2022-11-25)
PROC: 4A11X4G Monitoring of Peripheral Nervous Electrical Activity, Intraoperative, External Approach (ICD-10-PCS; 2022-11-25)
PROC: 0RG2071 Fusion of 2 or more Cervical Vertebral Joints with Autologous Tissue Substitute, Posterior Approach, Posterior Column, Open Approach (ICD-10-PCS; 2022-11-25)
DX: M48.02 Spinal stenosis, cervical region (principal); G82.50 Quadriplegia, unspecified; N17.0 Acute kidney failure with tubular necrosis; M50.00 Cervical disc disorder with myelopathy, unspecified cervical region; I48.92 Unspecified atrial flutter; I31.39 Other pericardial effusion (noninflammatory); J81.1 Chronic pulmonary edema; I16.0 Hypertensive urgency; I48.0 Paroxysmal atrial fibrillation; Z20.822 Contact with and (suspected) exposure to COVID-19; M94.0 Chondrocostal junction syndrome [Tietze]; I25.10 Atherosclerotic heart disease of native coronary artery without angina pectoris; E78.00 Pure hypercholesterolemia, unspecified; E87.6 Hypokalemia; I27.20 Pulmonary hypertension, unspecified; I34.0 Nonrheumatic mitral (valve) insufficiency; I44.7 Left bundle-branch block, unspecified; I12.9 Hypertensive chronic kidney disease with stage 1 through stage 4 chronic kidney disease, or unspecified chronic kidney disease; E78.5 Hyperlipidemia, unspecified; N18.31 Chronic kidney disease, stage 3a; J44.9 Chronic obstructive pulmonary disease, unspecified; F17.200 Nicotine dependence, unspecified, uncomplicated; Z79.82 Long term (current) use of aspirin; Z90.711 Acquired absence of uterus with remaining cervical stump
CPT/HCPCS: 36415; 71045; 71275; 72040; 72141; 74018; 76000; 76770; 80048; 80053; 80061; 81003; 82550; 82553; 83735; 83880; 84300; 84439; 84443; 84484; 85025; 87426; 88305; 88311; 93005; 93306; 95925; 95926; 95928; 95929; 97116; 97162; 97164; 97166; 97530; 99285; C1893; J0360; J0690; J1100; J1580; J1650; J1940; J2270; J2405; J3010; J3490; J7030; J7050; J7121; L0172; P9047; Q9967; C1713